=== PATIENT | male | born 1990 | race Hispanic/Latino ===

== ENCOUNTER 2024-09-27 09:47 | Emergency (ER) | payer SELFPAY ==
[2024-09-27 11:09] LABS: Specific Gravity > 1.030 (1.005-1.030); Sqamous Epithelial <5 /HPF (None Seen); Urine Bacteria None Seen /HPF (<20); Urine Bilirubin NEGATIVE (Negative); Urine Blood Negative (Negative); Urine Clarity Clear (Clear); Urine Color Yellow (Yellow); Urine Culture Reflex Order NOT NEEDED; Urine Glucose NEGATIVE (Negative); Urine Ketones TRACE (Negative); Urine Microscopic Reflex YN ORDER UMIC; Urine Mucus 4+ /HPF (None Seen); Urine Nitrite NEGATIVE (Negative); Urine Protein TRACE (Negative); Urine RBC <5 /HPF (None Seen); Urine Urobilinogen 1+ (Normal); Urine WBC <5 /HPF (<5); Urine pH 5.5 (5.0-7.0)
[2024-09-27 11:13] LABS: Absolute Eosinophils 0.1 K/uL (0-0.5); Absolute Lymphocytes (CBC) 1.1 K/uL (0.7-4.9); Absolute Monocytes 0.2 K/uL (0.1-1.3); Absolute Neutrophil 3.6 K/uL (1.8-8.0); Basophils % 0.9 % (0-1.3); Eosinophils % 2.8 % (0-4.4); Hematocrit 46.3 % (39.6-49.0); Hemoglobin 16.1 g/dL (13.6-17.9); Lymphocytes % 21.7 % (15.3-44.8); MCH 30.8 pg (27.0-35.0); MCHC 34.8 g/dL (32.0-36.0); MCV 88.5 fL (80-100); MPV 8.8 fL (7.6-11.3); Monocytes % 4.8 % (3.3-12.3); Neutrophils % 69.8 % (41.7-73.7); Nucleated Red Blood Cells % 0.1 % (0-0); Platelets 207 thou/uL (152-406); RBC Red Blood Cell Count 5.23 M/uL (4.33-5.43); Red Cell Distribution Width 12.6 % (12.1-15.2)
--- NOTE | 2024-09-27 11:14 | EDPHYS ---
Physician Documentation [facility] Name: Enmanuel Motley Age: 34 yrs Sex: Male : 1990 Arrival Date: 09/27/2024 Time: 09:47 Bed 19 Private MD: ED Physician Sudheer Alvarado HPI: 09/27 10:19 This 34 yrs old Male presents to ER via Unassigned with complaints of Mental rn Evaluation. 10:19 The patient presents to the emergency department with anxiety, depression, a history of rn a suicide gesture, suicide ideation. Onset: The symptoms/episode began/occurred at an unknown time. Patient reports suicide attempt on Thursday, took 13 pills of his trazodone. Did not see a future for him and has been very anxious and depressed. Saw his psychiatrist today who sent him in for evaluation today.. Historical: - Allergies: 10:25 No Known Allergies; ss - Home Meds: 11:39 cariprazine 3 mg oral capsule 1 cap daily [Active]; lithium carbonate 600 mg Oral ap3 capsule 2 caps [Active]; venlafaxine 75 mg oral Capsule, ER 24 hr 1 cap daily [Active]; trazodone 100 mg Oral tablet every day at bedtime [Active]; duloxetine 30 mg oral capsule,delayed release (e.c.) 1 cap daily [Active]; - PMHx: 10:25 Anxiety; Depressive disorder; ss - Immunization history:: Adult Immunizations unknown. - Infectious Disease History:: Denies. - Family history:: not pertinent. - Social history:: Smoking status: Patient denies any tobacco usage or history of. - Hospitalizations: : No recent hospitalization is reported. ROS: 10:19 Constitutional: Negative for fever, chills, and weight loss, Cardiovascular: Negative rn for chest pain, palpitations, and edema, Respiratory: Negative for shortness of breath, cough, wheezing, and pleuritic chest pain, Abdomen/GI: Negative for abdominal pain, nausea, vomiting, diarrhea, and constipation, MS/Extremity: Negative for injury and deformity, Skin: Negative for injury, rash, and discoloration, Neuro: Negative for headache, weakness, numbness, tingling, and seizure, Psych: Positive for depression/anxiety/suicidal ideation Exam: 10:19 Constitutional: This is a well developed, well nourished patient who is awake, alert, rn and in no acute distress. Head/Face: Normocephalic, atraumatic. Cardiovascular: Regular rate and rhythm. No pulse deficits. Respiratory: No increased work of breathing, no retractions or nasal flaring. MS/ Extremity: Pulses equal, no cyanosis. Neuro: Awake and alert, GCS 15 16:45 ECG was reviewed by the Attending Physician. rn Vital Signs: 10:19 BP 130 / 88; Pulse 84; Resp 14; Temp 98(O); Pulse Ox 98% on R/A; Weight 78.47 kg; ss Height 5 ft. 5 in. ; Pain 0/10; 17:29 BP 122 / 76; Pulse 78; Resp 18; Pulse Ox 99% on R/A; ap3 10:19 Body Mass Index 28.79 (78.47 kg, 165.1 cm) ss 10:19 Pain Scale: Adult ss MDM: 09:55 Medical Screening Exam initiated rn 11:13 Differential diagnosis: depression, Suicidal ideation. Data reviewed: vital signs, rn nurses notes, lab test result(s), EKG, and as a result, I will admit patient. Consideration of Admission/Observation Patient was admitted/placed on observation. Escalation of care including admission/observation considered. Counseling: I had a detailed discussion with the patient and/or guardian regarding the historical points, exam findings, and any diagnostic results supporting the discharge/admit diagnosis, lab results, the need to transfer to another facility. 09/27 10:17 Order name: Acetaminophen 09/27 10:17 Order name: Basic Metabolic Panel 09/27 10:17 Order name: CBC with Diff 09/27 10:17 Order name: ETOH Level 09/27 10:17 Order name: Hepatic Function 09/27 10:17 Order name: PT-INR 09/27 10:17 Order name: Ptt, Activated 09/27 10:17 Order name: Salicylate 09/27 10:17 Order name: Urinalysis w/ reflexes 09/27 10:17 Order name: Urine Drug Screen 09/27 10:17 Order name: EKG - Nurse/Tech; Complete Time: 11:28 09/27 10:17 Order name: IV Saline Lock; Complete Time: 11:28 09/27 10:17 Order name: Labs collected and sent; Complete Time: 11: ss 09/27 10:17 Order name: Suicide Precautions; Complete Time: ss 09/27 10:17 Order name: Suicide Screening ([place]); Complete Time: ss EC:45 Rate is 63 beats/min. Rhythm is regular. QRS Wall is Normal. NV interval is normal. QRS rn interval is normal. QT interval is normal. No Q waves. T waves are Normal. No ST changes noted. Clinical impression: NSR w/ Non-specific ST/T Changes. Interpreted by me. Reviewed by me. Administered Medications: No medications were administered Disposition Summary: 09/27/24 11:14 Transfer Ordered Notes: Transfer Location: Psych Facility rn Reason: Higher level of care rn Condition: Stable rn Problem: new rn Symptoms: are unchanged rn Accepting Physician: (09/27/24 17:32) ap3 Diagnosis - Suicidal ideations rn Forms: - Medication Reconciliation Form rn - SBAR form rn Signatures: Dispatcher [employer] EDSudheer Zhao MD MD rn Blanchard, Shelby, RN RN ss Prokisch, Amanda, RN RN ap3 Corrections: (The following items were deleted from the chart) 17:32 11:14 Dr. thompson ap3
--- NOTE | 2024-09-27 11:14 | ER ---
Nurse's Notes [facility] Name: Enmanuel Motley Age: 34 yrs Sex: Male : 1990 Arrival Date: 09/27/2024 Time: 09:47 Bed 19 Private MD: Diagnosis: Suicidal ideations Presentation: 09/27 10:19 Chief complaint: Patient states: Suicide attempt on Thursday after taking 13 of ss prescribed Trazodone tablets. Pt was recommended by Dr. Harry Peña, psychiatrist to come to hospital for help. Pt is seeking help for his suicidal ideations. Coronavirus screen: Client denies travel out of the [place] in the last 14 days. Ebola Screen: Patient denies exposure to infectious person. Patient denies travel to an Ebola-affected area in the 21 days before illness onset. Initial Sepsis Screen: Does the patient meet any 2 criteria? No. Patient's initial sepsis screen is negative. Does the patient have a suspected source of infection? No. Patient's initial sepsis screen is negative. Risk Assessment: Do you want to hurt yourself or someone else? Patient reports no desire to harm self or others. 10:19 Method Of Arrival: Ambulatory ss 10:19 Acuity: REDD 2 ss 17:32 Onset of symptoms is unknown. ap3 Historical: - Allergies: 10:25 No Known Allergies; ss - Home Meds: 11:39 cariprazine 3 mg oral capsule 1 cap daily [Active]; lithium carbonate 600 mg Oral ap3 capsule 2 caps [Active]; venlafaxine 75 mg oral Capsule, ER 24 hr 1 cap daily [Active]; trazodone 100 mg Oral tablet every day at bedtime [Active]; duloxetine 30 mg oral capsule,delayed release (e.c.) 1 cap daily [Active]; - PMHx: 10:25 Anxiety; Depressive disorder; ss - Immunization history:: Adult Immunizations unknown. - Infectious Disease History:: Denies. - Family history:: not pertinent. - Social history:: Smoking status: Patient denies any tobacco usage or history of. - Hospitalizations: : No recent hospitalization is reported. Screenin:30 [facility] ED Fall Risk Assessment (Adult) History of falling in the last 3 months, ap3 including since admission No falls in past 3 months (0 pts) Confusion or Disorientation No (0 pts) Intoxicated or Sedated No (0 pts) Impaired Gait No (0 pts) Mobility Assist Device Used No (0 pt) Altered Elimination No (0 pt) Score/Fall Risk Level 0 - 2 = Low Risk Oriented to surroundings, Maintained a safe environment, Educated pt \\T\\ family on fall prevention, incl call for assistance when getting out of bed, Assessed \\T\\ reinforced patient's understanding of fall precautions, Hourly rounding (assess needs \\T\\ fall precautionary measures) done, Used ambulatory aids as needed (educated on \\T\\ assisted with). Abuse screen: Denies threats or abuse. Nutritional screening: No deficits noted. Tuberculosis screening: No symptoms or risk factors identified. Assessment: 10:19 General: Appears in no apparent distress. Behavior is calm, cooperative, appropriate ap3 for age. Pain: Denies pain. Neuro: Level of Consciousness is awake, alert, obeys commands, Oriented to person, place, time, situation, Appropriate for age. Cardiovascular: Patient's skin is warm and dry. Respiratory: Airway is patent Respiratory effort is even, unlabored, Respiratory pattern is regular, symmetrical. 10:45 Reassessment: Patient and/or family updated on plan of care and expected duration. Pain ap3 level reassessed. Patient is alert, oriented x 3, equal unlabored respirations, skin warm/dry/pink. 12:45 Reassessment: Patient and/or family updated on plan of care and expected duration. Pain ap3 level reassessed. Patient is alert, oriented x 3, equal unlabored respirations, skin warm/dry/pink. 14:20 Reassessment: Patient and/or family updated on plan of care and expected duration. Pain ap3 level reassessed. Patient is alert, oriented x 3, equal unlabored respirations, skin warm/dry/pink. 14:48 Reassessment: [facility] at bedside. jl7 15:59 General: nurse to nurse given to VESNA Kent at [facility] . ap3 16:10 Reassessment: Patient and/or family updated on plan of care and expected duration. Pain ap3 level reassessed. Patient is alert, oriented x 3, equal unlabored respirations, skin warm/dry/pink. 17:29 Reassessment: Patient and/or family updated on plan of care and expected duration. Pain ap3 level reassessed. Patient is alert, oriented x 3, equal unlabored respirations, skin warm/dry/pink. General: Appears in no apparent distress. Behavior is calm, cooperative, appropriate for age. Neuro: Level of Consciousness is awake, alert, obeys commands, Oriented to person, place, time, situation. Cardiovascular: Patient's skin is warm and dry. Respiratory: Airway is patent Respiratory effort is even, unlabored, Respiratory pattern is regular, symmetrical. Psych: 09:47 Thompson Suicide Severity Screening: In the past month, have you wished you were ap3 or wished you could go to sleep and not wake up? Patient responds "yes." "In the past month, have you actually had any thoughts of killing yourself?" Patient responds "yes." "In your lifetime, have you ever done anything, started to do anything, or prepared to do anything to end your life?" Patient responds "yes." Patient reports suicidal intent within 3 past months. Subjective: Having thoughts of suicide. Plan for suicide is patient reports ingesting 13 trazodone pills Thursday. Objective: Patient is cooperative, Speech is normal, Affect is appropriate. Interventions: Removed personal items and placed in bag. Patient placed in hospital gown. Searched person for dangerous items. Urine collected and sent for urine drug test. Belonging list filled out. Safety Checks: Personal items have been removed. Door is open. Visitors are present. mother is present at bedside. Pt denies substance abuse. 17:31 Commitment: Patient will be a voluntary commitment. ap3 Vital Signs: 10:19 BP 130 / 88; Pulse 84; Resp 14; Temp 98(O); Pulse Ox 98% on R/A; Weight 78.47 kg; ss Height 5 ft. 5 in. ; Pain 0/10; 17:29 BP 122 / 76; Pulse 78; Resp 18; Pulse Ox 99% on R/A; ap3 10:19 Body Mass Index 28.79 (78.47 kg, 165.1 cm) 10:19 Pain Scale: Adult ss ED Course: 09:50 Patient arrived in ED. mr 09:55 Sudheer Alvarado MD is Attending Physician. rn 10:25 Triage completed. ss 10:25 Arm band placed on right wrist. ss 11:28 Acetaminophen Sent. bc6 11:28 Basic Metabolic Panel Sent. bc6 11:28 Hepatic Function Sent. bc6 11:28 Salicylate Sent. 6 11:28 Initial lab(s) drawn, by md, sent to lab. EKG done, by ED staff, reviewed by Sudheer Alvarado MD. Inserted saline lock: 20 gauge in right antecubital area, using aseptic technique. Blood collected. Flushed with 10 mL NS. 11:38 Mariela Bassett, RN is Primary Nurse. ap3 12:27 contacted [facility] to have a screener evaluate pt. bd 12:49 Patient has correct armband on for positive identification. Bed in low position. Adult ap3 w/ patient. Pulse ox on. NIBP on. 15:50 faxed chart to [facility], [facility]. bd 16:01 pt accepted in transfer to [facility] by dr kapoor,admin approval given by hussain Roberto. 17:23 IV discontinued, intact, bleeding controlled, No redness/swelling at site. Pressure ap3 dressing applied. 17:31 Provided Education on: transfer education. ap3 17:31 No provider procedures requiring assistance completed. ap3 Administered Medications: No medications were administered Medication: 12:50 VIS not applicable for this client. ap3 Outcome: 11:14 ER care complete, transfer ordered by . rn 17:30 Transferred by ground EMS Note: [facility] ap3 17:30 Condition: stable 17:30 Instructed on the need for transfer, 17:32 Patient left the ED. ap3 Signatures: Marli Callaway, Marlen, Reg Reg mr Sudheer Alvarado MD MD rn Blanchard, Shelby, RN RN ss Leal, Jahala, RN RN jl7 Mariela Bassett RN RN ap3 [facility]
[2024-09-27 11:15] LABS: Barbiturates NEGATIVE (NEGATIVE); Benzodiazepines NEGATIVE (NEGATIVE); Cocaine NEGATIVE (NEGATIVE); METHAMPHETAM NEGATIVE (NEGATIVE); Methadone NEGATIVE (NEGATIVE); Opiates NEGATIVE (NEGATIVE); Phencyclidine NEGATIVE (NEGATIVE); THC Cannibis NEGATIVE (NEGATIVE)
[2024-09-27 11:18] LABS: PTT, Activated Partial Thromb 30.3 SECONDS (24.3-36.9); Protime INR 0.87
[2024-09-27 11:27] LABS: ALT/SGPT 21 U/L (16-61); AST/SGOT 14 U/L (15-37); Albumin 4.1 g/dL (3.4-5.0); Albumin/Globulin Ratio 1.3 (1.1-1.8); Alkaline Phosphatase 61 U/L (45-117); Anion Gap 5.8 mEq/L (5.0-15.0); BUN Blood Urea Nitrogen 14 mg/dL (7-18); Bicarbonate 30 mEq/L (21-32); Bilirubin Total 0.5 mg/dL (0.2-1.0); Globulin 3.2 g/dL (2.3-3.5); Glomerular Filtration Rate 104 ml/min (=/>90); Glucose Level 108 mg/dL (74-106); Potassium 3.8 mEq/L (3.5-5.1); Protein, Total 7.3 g/dL (6.4-8.2); Sodium Level 139 mEq/L (136-145)
[2024-09-27 11:29] LABS: Bilirubin Direct < 0.2 mg/dL (0-0.2); Bilirubin Indirect, Calculated 0.3 mg/dL (0.2-0.8)
[2024-09-27 17:51] VITALS: TEMP 98
[2024-09-27 17:57] VITALS: BP 122/76; O2SAT 99
--- NOTE | 2024-09-28 11:06 | EKG ---
Test Date: 2024-09-27 Test Time: 10:57:06 Hired Worker: CLAUDIA MEASUREMENT RESULTS: Intervals: Rate: 63 CA: QRSD: 108 QT: 420 QTc: 429 [place]: P: CA: QRS: 87 T: -11 INTERPRETIVE STATEMENTS: Normal sinus rhythm Inferior infarct, age undetermined Cannot rule out Anterior infarct, age undetermined Abnormal ECG Compared to ECG 04/25/2008 10:44:47 Myocardial infarct finding now present Sinus bradycardia no longer present Electronically Signed On 09-28-24 11:04:31 DENTAL TECHNOLOGIST by Tommy Hughes
== END 2024-09-27 17:32 ==
LOC: ER 09:47
DX: R45.851 Suicidal ideations (principal)
CPT/HCPCS: 36415; 80048; 80076; 80143; 80179; 80307; 81001; 82077; 85025; 85610; 85730; 93005